=== PATIENT | female | born 1940 | race Caucasian/White ===

== ENCOUNTER 2021-07-02 08:58 | Emergency (ER) | payer MEDICARE ==
[2021-07-02] MEDS ORDERED: fentaNYL 100 MCG/2 ML SDV IVPUSH ONE (09:39)
== END 2021-07-02 11:31 ==
LOC: JP.ED 08:58
DX: S32.502A Unspecified fracture of left pubis, initial encounter for closed fracture (principal); I48.91 Unspecified atrial fibrillation; E78.00 Pure hypercholesterolemia, unspecified; I11.0 Hypertensive heart disease with heart failure; I50.9 Heart failure, unspecified; J44.9 Chronic obstructive pulmonary disease, unspecified; M19.90 Unspecified osteoarthritis, unspecified site; Z95.0 Presence of cardiac pacemaker; Z88.5 Allergy status to narcotic agent; Z79.01 Long term (current) use of anticoagulants; Z79.899 Other long term (current) drug therapy; W18.30XA Fall on same level, unspecified, initial encounter
CPT/HCPCS: 73700-26-LT; 73700-LT; 96374; 99284; 99285-25; J3010

== ENCOUNTER 2021-08-26 07:52 | Emergency (ER) | payer MEDICARE ==
[2021-08-26] MEDS ORDERED: cefTRIAXone 1 GM in Sodium Chloride 0.9% 50 ML IV ONE (08:59)
[2021-08-26] MEDS ORDERED: Sodium Chloride 0.9% 10 ML Syringe FLUSH PRN (09:00)
[2021-08-26] MEDS ORDERED: Acetaminophen 325 MG Tab PO ONE (09:30)
[2021-08-26] MEDS ORDERED: Acetaminophen/HYDROcodone 325-5 MG Tab PO ONE (11:47)
[2021-08-26] MEDS ORDERED: Acetaminophen/oxyCODONE 325-5 MG Tab PO ONE (13:04)
== END 2021-08-26 14:04 ==
LOC: JP.ED 07:52
DX: U07.1 COVID-19 (principal); N39.0 Urinary tract infection, site not specified; M51.36 Other intervertebral disc degeneration, lumbar region; J44.9 Chronic obstructive pulmonary disease, unspecified; I48.91 Unspecified atrial fibrillation; E78.00 Pure hypercholesterolemia, unspecified; I11.0 Hypertensive heart disease with heart failure; I50.9 Heart failure, unspecified; Z95.0 Presence of cardiac pacemaker; Z88.5 Allergy status to narcotic agent; Z79.01 Long term (current) use of anticoagulants; Z79.899 Other long term (current) drug therapy
CPT/HCPCS: 36415; 71045; 71045-26; 72070; 72070-26; 72100; 72100-26; 80053; 81001; 82550; 83605; 85025; 85379; 85610; 86140; 87086; 87088; 87186; 96365; 99284-25; 99285; A9270-GY; J0696; J3490

== ENCOUNTER 2022-04-16 17:50 | Emergency (ER) | payer MEDICARE ==
[2022-04-16 18:37] LABS: ESTIMATED GFR 74 mL/min (>60)
[2022-04-16 18:56] LABS: CORONAVIRUS COVID-19 NAA NEGATIVE (NEGATIVE)
== END 2022-04-16 21:48 ==
LOC: JP.ED 17:50
DX: J18.9 Pneumonia, unspecified organism (principal); J21.0 Acute bronchiolitis due to respiratory syncytial virus; N39.0 Urinary tract infection, site not specified; B96.89 Other specified bacterial agents as the cause of diseases classified elsewhere; I48.91 Unspecified atrial fibrillation; I11.0 Hypertensive heart disease with heart failure; I50.9 Heart failure, unspecified; E78.00 Pure hypercholesterolemia, unspecified; J44.9 Chronic obstructive pulmonary disease, unspecified; M19.90 Unspecified osteoarthritis, unspecified site; F03.90 Unspecified dementia, unspecified severity, without behavioral disturbance, psychotic disturbance, mood disturbance, and anxiety; Z88.5 Allergy status to narcotic agent; Z79.899 Other long term (current) drug therapy; Z79.01 Long term (current) use of anticoagulants; Z20.822 Contact with and (suspected) exposure to COVID-19
CPT/HCPCS: 0241U; 36415; 51702; 71046; 71046-26; 80053; 81001; 85025; 86140; 99284; 99285-25

== ENCOUNTER 2022-12-04 21:08 | Inpatient (IN) | payer MEDICARE ==
[2022-12-04] MEDS ORDERED: Acetaminophen 325 MG Tab PO ONE (22:09)
[2022-12-04 22:21] LABS: BASOPHILS ABSOLUTE AUTO 0.08 K/uL (0.00-0.10); BASOPHILS PERCENT AUTO 1.2 % (0.1-1.3); EOSINOPHILS ABSOLUTE AUTO 0.12 K/uL (0.00-0.40); EOSINOPHILS PERCENT AUTO 1.7 % (0.0-5.4); HEMATOCRIT 38.2 % (34.3-46.0); HEMOGLOBIN 12.7 g/dL (11.2-15.5); IMMATURE GRAN PERCENT AUTO 0.3 % (0.0-0.7); LYMPHOCYTES ABSOLUTE AUTO 1.35 K/uL (0.8-3.3); LYMPHOCYTES PERCENT AUTO 19.6 % (11.4-47.7); MEAN CORPUSCULAR HEMOGLOBIN 31.4 pg (31.6-35.5); MEAN CORPUSCULAR HGB CONC 33.2 g/dL (31.6-35.5); MEAN CORPUSCULAR VOLUME 94.3 fL (81.4-99.0); MONOCYTES ABSOLUTE AUTO 0.91 K/uL (0.20-0.90); MONOCYTES PERCENT AUTO 13.2 % (3.3-12.6); NEUTROPHILS ABSOLUTE AUTO 4.42 K/uL (1.0-7.6); PLATELET COUNT,PLT 190 K/uL (130-375); RED BLOOD CELL COUNT 4.05 M/uL (3.77-5.24); WHITE BLOOD CELL COUNT,WBC 6.9 K/uL (3.2-11.0)
[2022-12-04 22:22] LABS: IMMATURE GRAN ABSOLUTE AUTO 0.02 K/uL (0.00-0.23)
[2022-12-04 22:22] LABS: APPEARANCE,URINE CLOUDY (CLEAR); BILIRUBIN,URINE NEGATIVE (NEGATIVE); COLOR,URINE YELLOW (YELLOW); GLUCOSE,URINE NEGATIVE (NEGATIVE); KETONES,URINE NEGATIVE (NEGATIVE); LEUKOCYTE ESTERASE,URINE LARGE (NEGATIVE); NITRITE,URINE POSITIVE (NEGATIVE); OCCULT BLOOD,URINE MODERATE (NEGATIVE); PH,URINE 7.5 (5.0-8.0); PROTEIN,URINE NEGATIVE (NEGATIVE); UROBILINOGEN,URINE 0.2 EU/dL (0.2-1.0)
[2022-12-04 22:26] LABS: AMORPHOUS SEDIMENT,URINE MODERATE; BACTERIA,URINE MANY; EPITHELIAL CELLS,URINE NOT SEEN; MUCUS,URINE FEW
[2022-12-04 22:42] LABS: A/G RATIO 1.2 (1.2-2.2); ALANINE AMINOTRANSFERASE,ALT 17 U/L (12-78); ALBUMIN 3.6 g/dL (3.4-5.0); ALKALINE PHOSPHATASE 54 U/L (46-116); ANION GAP 12.5 mmol/L (5.0-14.0); ASPARTATE AMNIOTRANSFERASE,AST 14 U/L (15-37); BILIRUBIN TOTAL 0.6 mg/dL (0.2-1.0); BLOOD UREA NITROGEN,BUN 21 mg/dL (7-18); CARBON DIOXIDE,CO2 26 mmol/L (21-32); CHLORIDE,CL 95 mmol/L (100-108); CREATININE 0.9 mg/dL (0.6-1.0); EST CRCL DRUG DOSING (CG) 37.91 mL/min; ESTIMATED GFR 64 mL/min (>60); GLUCOSE RANDOM 103 mg/dL (74-106); POTASSIUM,K 4.5 mmol/L (3.6-5.2); PROTEIN TOTAL,TP 6.7 g/dL (6.4-8.2); SODIUM,NA 129 mmol/L (140-148)
[2022-12-05] MEDS ORDERED: Albuterol 0.083% 2.5 MG/3 ML Neb Soln PRN (00:54)
[2022-12-05] MEDS ORDERED: Pantoprazole 40 MG Vial IV ONE (00:54)
[2022-12-05] MEDS ORDERED: Ondansetron 4 MG Tab.DIS PO PRN (00:54)
[2022-12-05] MEDS ORDERED: Mineral Oil 133 ML BOTTLE RECTAL ONE ×2 (00:54→19:40)
[2022-12-05] MEDS ORDERED: cefTRIAXone 1 GM in Sodium Chloride 0.9% 50 ML IV SCH ×2 (01:00→21:00)
[2022-12-05] MEDS: oxyCODONE 5 MG Tab PO PRN ×4 (01:25→21:28)
[2022-12-05] MEDS: Sodium Chloride 0.9% 1,000 ML IV SCH ×3 (01:27→22:32)
[2022-12-05 04:34] LABS: BASOPHILS ABSOLUTE AUTO 0.08 K/uL (0.00-0.10); BASOPHILS PERCENT AUTO 1.4 % (0.1-1.3); EOSINOPHILS ABSOLUTE AUTO 0.13 K/uL (0.00-0.40); EOSINOPHILS PERCENT AUTO 2.2 % (0.0-5.4); HEMATOCRIT 34.9 % (34.3-46.0); HEMOGLOBIN 11.6 g/dL (11.2-15.5); IMMATURE GRAN PERCENT AUTO 0.2 % (0.0-0.7); LYMPHOCYTES ABSOLUTE AUTO 1.55 K/uL (0.8-3.3); LYMPHOCYTES PERCENT AUTO 26.6 % (11.4-47.7); MEAN CORPUSCULAR HEMOGLOBIN 31.1 pg (31.6-35.5); MEAN CORPUSCULAR HGB CONC 33.2 g/dL (31.6-35.5); MEAN CORPUSCULAR VOLUME 93.6 fL (81.4-99.0); MONOCYTES ABSOLUTE AUTO 0.75 K/uL (0.20-0.90); MONOCYTES PERCENT AUTO 12.9 % (3.3-12.6); NEUTROPHILS PERCENT AUTO 56.7 % (40.0-78.1); PLATELET COUNT,PLT 82 K/uL (130-375); RED BLOOD CELL COUNT 3.73 M/uL (3.77-5.24); WHITE BLOOD CELL COUNT,WBC 5.8 K/uL (3.2-11.0)
[2022-12-05 04:50] LABS: CALCIUM 8.5 mg/dL (8.5-10.1); CREATININE 0.8 mg/dL (0.6-1.0); EST CRCL DRUG DOSING (CG) 42.89 mL/min; POTASSIUM,K 3.9 mmol/L (3.6-5.2)
[2022-12-05 05:08] LABS: IMMATURE GRAN ABSOLUTE AUTO 0.01 K/uL (0.00-0.23)
[2022-12-05 05:10] LABS: ANION GAP 10.9 mmol/L (5.0-14.0)
[2022-12-05] MEDS: Acetaminophen 325 MG Tab PO PRN ×2 (07:42→21:28)
[2022-12-05] MEDS ORDERED: Albuterol 0.083% 2.5 MG/3 ML Neb Soln INH PRN (08:00)
[2022-12-05] MEDS ORDERED: Apixaban 2.5 MG Tab PO SCH (09:00)
[2022-12-05] MEDS: Losartan 50 MG Tab PO SCH (09:33)
[2022-12-05] MEDS: Oxybutynin 5 MG Tab PO SCH ×2 (09:33→21:15)
[2022-12-05] MEDS: Furosemide 20 MG Tab PO SCH (09:34)
[2022-12-05] MEDS: Polyethylene Glycol 3350 Powder 17 GM Packet PO SCH ×2 (09:34→09:38)
[2022-12-05] MEDS: Metoprolol Succinate 25 MG Tab.ER PO SCH (09:34)
[2022-12-05] MEDS: Ferrous Sulfate 325 MG Tab PO SCH (09:34)
[2022-12-05] MEDS: Sennosides/Docusate Sodium 50-8.6 MG Tab PO SCH (09:34)
[2022-12-05] MEDS: Apixaban 2.5 MG Tab PO SCH ×2 (09:34→21:14)
[2022-12-05] MEDS: Sennosides 8.6 MG Tab PO SCH (09:35)
[2022-12-05] MEDS: Calcium Carbonate/Vitamin D3 1500 MG-400 Units Tab PO SCH (09:36)
[2022-12-05] MEDS ORDERED: Polyethylene Glycol 3350 Powder 119 GM Bottle PO ONE (10:00)
[2022-12-05] MEDS ORDERED: Sodium Phosphate,Monobasic/Sodium Phosphate,Dibasic Enema 133 ML Bottle RECTAL ONE (16:12)
[2022-12-05] MEDS ORDERED: atorvaSTATin 20 MG Tab PO SCH (21:00)
[2022-12-06 04:32] LABS: BASOPHILS ABSOLUTE AUTO 0.06 K/uL (0.00-0.10); EOSINOPHILS ABSOLUTE AUTO 0.11 K/uL (0.00-0.40); EOSINOPHILS PERCENT AUTO 1.9 % (0.0-5.4); HEMATOCRIT 35.9 % (34.3-46.0); HEMOGLOBIN 11.4 g/dL (11.2-15.5); IMMATURE GRAN PERCENT AUTO 0.2 % (0.0-0.7); LYMPHOCYTES ABSOLUTE AUTO 1.48 K/uL (0.8-3.3); MEAN CORPUSCULAR HEMOGLOBIN 30.3 pg (31.6-35.5); MEAN CORPUSCULAR HGB CONC 31.8 g/dL (31.6-35.5); MEAN CORPUSCULAR VOLUME 95.5 fL (81.4-99.0); MONOCYTES ABSOLUTE AUTO 0.78 K/uL (0.20-0.90); MONOCYTES PERCENT AUTO 13.2 % (3.3-12.6); NEUTROPHILS ABSOLUTE AUTO 3.49 K/uL (1.0-7.6); NEUTROPHILS PERCENT AUTO 58.7 % (40.0-78.1); PLATELET COUNT,PLT 65 K/uL (130-375); RED BLOOD CELL COUNT 3.76 M/uL (3.77-5.24); WHITE BLOOD CELL COUNT,WBC 5.9 K/uL (3.2-11.0)
[2022-12-06 04:47] LABS: CALCIUM 8.5 mg/dL (8.5-10.1); CREATININE 0.7 mg/dL (0.6-1.0); EST CRCL DRUG DOSING (CG) 49.02 mL/min; POTASSIUM,K 4.3 mmol/L (3.6-5.2)
[2022-12-06 05:07] LABS: IMMATURE GRAN ABSOLUTE AUTO 0.01 K/uL (0.00-0.23)
[2022-12-06 05:08] LABS: ANION GAP 10.3 mmol/L (5.0-14.0)
[2022-12-06] MEDS: Sennosides 8.6 MG Tab PO SCH (08:18)
[2022-12-06] MEDS: Ferrous Sulfate 325 MG Tab PO SCH (08:18)
[2022-12-06] MEDS: Furosemide 20 MG Tab PO SCH (08:18)
[2022-12-06] MEDS: Sennosides/Docusate Sodium 50-8.6 MG Tab PO SCH (08:18)
[2022-12-06] MEDS: Oxybutynin 5 MG Tab PO SCH (08:18)
[2022-12-06] MEDS: Polyethylene Glycol 3350 Powder 17 GM Packet PO SCH ×2 (08:18→08:28)
[2022-12-06] MEDS: Losartan 50 MG Tab PO SCH (08:19)
[2022-12-06] MEDS: Apixaban 2.5 MG Tab PO SCH (08:19)
[2022-12-06] MEDS: Calcium Carbonate/Vitamin D3 1500 MG-400 Units Tab PO SCH (08:19)
[2022-12-06] MEDS: Metoprolol Succinate 25 MG Tab.ER PO SCH (08:19)
[2022-12-06] MEDS: Sodium Chloride 0.9% 1,000 ML IV SCH (08:23)
[2022-12-06] MEDS ORDERED: Polyethylene Glycol 3350 Powder 17 GM Packet PO SCH (21:00)
== END 2022-12-06 13:20 | DRG 699 ==
LOC: JP.ED 21:08 → JP.MS 12-05 00:16
PROVIDERS: ADMIT Internal Medicine; ATTEND Internal Medicine
DX: R10.9 Unspecified abdominal pain (principal); T83.510A Infection and inflammatory reaction due to cystostomy catheter, initial encounter; I48.20 Chronic atrial fibrillation, unspecified; N39.0 Urinary tract infection, site not specified; I62.9 Nontraumatic intracranial hemorrhage, unspecified; I11.0 Hypertensive heart disease with heart failure; E78.00 Pure hypercholesterolemia, unspecified; F03.90 Unspecified dementia, unspecified severity, without behavioral disturbance, psychotic disturbance, mood disturbance, and anxiety; Z66 Do not resuscitate; I50.9 Heart failure, unspecified; I48.91 Unspecified atrial fibrillation; J44.9 Chronic obstructive pulmonary disease, unspecified; K59.09 Other constipation; G30.9 Alzheimer's disease, unspecified; F02.A0 Dementia in other diseases classified elsewhere, mild, without behavioral disturbance, psychotic disturbance, mood disturbance, and anxiety; Z95.0 Presence of cardiac pacemaker; Z88.5 Allergy status to narcotic agent; Z79.01 Long term (current) use of anticoagulants; Z93.6 Other artificial openings of urinary tract status; Z20.822 Contact with and (suspected) exposure to COVID-19; Z79.899 Other long term (current) drug therapy
CPT/HCPCS: 36415; 74176; 80053; 81001; 85025; 87086; 87088; 87186; A9270; U0002; 80048; C9113; J0696; J3490; J7030

== ENCOUNTER 2023-01-28 20:14 | Emergency (ER) | payer MEDICARE ==
[2023-01-28 20:58] LABS: BASOPHILS ABSOLUTE AUTO 0.07 K/uL (0.00-0.10); BASOPHILS PERCENT AUTO 1.2 % (0.1-1.3); EOSINOPHILS ABSOLUTE AUTO 0.06 K/uL (0.00-0.40); HEMATOCRIT 37.3 % (34.3-46.0); HEMOGLOBIN 12.2 g/dL (11.2-15.5); IMMATURE GRAN PERCENT AUTO 0.3 % (0.0-0.7); LYMPHOCYTES ABSOLUTE AUTO 0.77 K/uL (0.8-3.3); LYMPHOCYTES PERCENT AUTO 13.1 % (11.4-47.7); MEAN CORPUSCULAR HEMOGLOBIN 30.1 pg (31.6-35.5); MEAN CORPUSCULAR HGB CONC 32.7 g/dL (31.6-35.5); MEAN CORPUSCULAR VOLUME 92.1 fL (81.4-99.0); MONOCYTES ABSOLUTE AUTO 0.86 K/uL (0.20-0.90); MONOCYTES PERCENT AUTO 14.6 % (3.3-12.6); NEUTROPHILS ABSOLUTE AUTO 4.12 K/uL (1.0-7.6); NEUTROPHILS PERCENT AUTO 69.8 % (40.0-78.1); PLATELET COUNT,PLT 80 K/uL (130-375); RED BLOOD CELL COUNT 4.05 M/uL (3.77-5.24); WHITE BLOOD CELL COUNT,WBC 5.9 K/uL (3.2-11.0)
[2023-01-28 21:00] LABS: IMMATURE GRAN ABSOLUTE AUTO 0.02 K/uL (0.00-0.23)
[2023-01-28 21:14] LABS: A/G RATIO 1.2 (1.2-2.2); ALANINE AMINOTRANSFERASE,ALT 14 U/L (12-78); ALBUMIN 3.7 g/dL (3.4-5.0); ALKALINE PHOSPHATASE 52 U/L (46-116); ASPARTATE AMNIOTRANSFERASE,AST 16 U/L (15-37); BILIRUBIN TOTAL 0.8 mg/dL (0.2-1.0); BLOOD UREA NITROGEN,BUN 17 mg/dL (7-18); C-REACTIVE PROTEIN 0.12 mg/dL (0.0-0.3); CALCIUM 9.5 mg/dL (8.5-10.1); CARBON DIOXIDE,CO2 30 mmol/L (21-32); CHLORIDE,CL 96 mmol/L (100-108); EST CRCL DRUG DOSING (CG) 34.12 mL/min; ESTIMATED GFR 57 mL/min (>60); GLUCOSE RANDOM 120 mg/dL (74-106); PROTEIN TOTAL,TP 6.9 g/dL (6.4-8.2); SODIUM,NA 133 mmol/L (140-148)
[2023-01-28] MEDS ORDERED: Sodium Chloride 0.9% 500 ML IV ONE (21:16)
[2023-01-28 21:54] LABS: APPEARANCE,URINE CLOUDY (CLEAR); BILIRUBIN,URINE NEGATIVE (NEGATIVE); COLOR,URINE YELLOW (YELLOW); GLUCOSE,URINE NEGATIVE (NEGATIVE); KETONES,URINE NEGATIVE (NEGATIVE); LEUKOCYTE ESTERASE,URINE LARGE (NEGATIVE); NITRITE,URINE POSITIVE (NEGATIVE); OCCULT BLOOD,URINE TRACE-INTACT (NEGATIVE); PROTEIN,URINE 30 mg/dL (NEGATIVE); UROBILINOGEN,URINE 0.2 EU/dL (0.2-1.0)
[2023-01-28 21:59] LABS: WBC,URINE 50-75 (0-5)
[2023-01-28 22:00] LABS: AMORPHOUS SEDIMENT,URINE FEW; BACTERIA,URINE MANY; EPITHELIAL CELLS,URINE RARE; MUCUS,URINE RARE
[2023-01-28] MEDS ORDERED: cefTRIAXone 1 GM in Sodium Chloride 0.9% 50 ML IV ONE (23:04)
== END 2023-01-29 07:47 | disposition home or self-care (01) ==
LOC: JP.ED 20:14
DX: N39.0 Urinary tract infection, site not specified (principal); K56.609 Unspecified intestinal obstruction, unspecified as to partial versus complete obstruction; J44.9 Chronic obstructive pulmonary disease, unspecified; E78.00 Pure hypercholesterolemia, unspecified; I48.91 Unspecified atrial fibrillation; I11.0 Hypertensive heart disease with heart failure; I50.9 Heart failure, unspecified; Z86.16 Personal history of COVID-19; Z95.0 Presence of cardiac pacemaker; Z79.01 Long term (current) use of anticoagulants; Z79.899 Other long term (current) drug therapy; Z88.5 Allergy status to narcotic agent
CPT/HCPCS: 36415; 71250; 74176; 80053; 81001; 83605; 83690; 85025; 86140; 87086; 87088; 87186; 96365; 99285; 99285-25; J0696; J3490; J7040

== ENCOUNTER 2023-10-10 22:06 | Emergency (ER) | payer MEDICARE ==
[2023-10-10 22:52] LABS: BASOPHILS ABSOLUTE AUTO 0.04 K/uL (0.00-0.10); BASOPHILS PERCENT AUTO 1.3 % (0.1-1.3); EOSINOPHILS ABSOLUTE AUTO 0.03 K/uL (0.00-0.40); HEMATOCRIT 21.6 % (34.3-46.0); IMMATURE GRAN PERCENT AUTO 0.3 % (0.0-0.7); LYMPHOCYTES ABSOLUTE AUTO 0.62 K/uL (0.8-3.3); LYMPHOCYTES PERCENT AUTO 20.6 % (11.4-47.7); MEAN CORPUSCULAR HEMOGLOBIN 23.9 pg (31.6-35.5); MEAN CORPUSCULAR HGB CONC 29.6 g/dL (31.6-35.5); MEAN CORPUSCULAR VOLUME 80.6 fL (81.4-99.0); MONOCYTES ABSOLUTE AUTO 0.61 K/uL (0.20-0.90); MONOCYTES PERCENT AUTO 20.3 % (3.3-12.6); NEUTROPHILS PERCENT AUTO 56.5 % (40.0-78.1); PLATELET COUNT,PLT 206 K/uL (130-375)
[2023-10-10 22:58] LABS: HEMOGLOBIN 6.4 g/dL (11.2-15.5); IMMATURE GRAN ABSOLUTE AUTO 0.01 K/uL (0.00-0.23)
[2023-10-10 23:08] LABS: ALANINE AMINOTRANSFERASE,ALT 12 U/L (12-78); ALBUMIN 2.7 g/dL (3.4-5.0); ALKALINE PHOSPHATASE 73 U/L (46-116); ASPARTATE AMNIOTRANSFERASE,AST 13 U/L (15-37); BILIRUBIN TOTAL 0.4 mg/dL (0.2-1.0); BLOOD UREA NITROGEN,BUN 33 mg/dL (7-18); CALCIUM 8.1 mg/dL (8.5-10.1); CARBON DIOXIDE,CO2 27 mmol/L (21-32); CHLORIDE,CL 93 mmol/L (100-108); CREATININE 1.2 mg/dL (0.6-1.0); EST CRCL DRUG DOSING (CG) 31.21 mL/min; ESTIMATED GFR 45 mL/min (>60); GLUCOSE RANDOM 106 mg/dL (74-106); POTASSIUM,K 4.6 mmol/L (3.6-5.2); PROTEIN TOTAL,TP 5.4 g/dL (6.4-8.2); SODIUM,NA 129 mmol/L (140-148)
[2023-10-10 23:09] LABS: ANION GAP 13.6 mmol/L (5.0-14.0)
[2023-10-10 23:24] LABS: RED BLOOD CELL COUNT 2.68 M/uL (3.77-5.24)
== END 2023-10-10 23:50 ==
LOC: JP.ED 22:06
DX: I11.0 Hypertensive heart disease with heart failure (principal); I50.9 Heart failure, unspecified; D50.0 Iron deficiency anemia secondary to blood loss (chronic); I48.91 Unspecified atrial fibrillation; E78.00 Pure hypercholesterolemia, unspecified; J44.9 Chronic obstructive pulmonary disease, unspecified; Z86.16 Personal history of COVID-19; Z79.891 Long term (current) use of opiate analgesic; Z79.899 Other long term (current) drug therapy; Z79.01 Long term (current) use of anticoagulants; Z88.5 Allergy status to narcotic agent
CPT/HCPCS: 36415; 80053; 82272; 85025; 99284